=== PATIENT | male | born 1950 | race Caucasian/White ===

== ENCOUNTER 2016-09-16 13:01 | Inpatient (IN) | payer MEDICARE ==
[~2016-09-16] VITALS: Ht 180.3 cm; Wt 121.6 kg
[2016-09-16 13:45] VITALS: BP 135/83; PULSE 113; RESP 18; TEMP 98; O2SAT 97
[2016-09-16] MEDS ORDERED: DIPHTH/TETANUS/ACEL PERTUSSIS (BOOSTER) 0.5 ML VIAL/PFS IM ONE (14:00)
[2016-09-16] MEDS ORDERED: SODIUM CHLORIDE 0.9% FLUSH 10 ML FLUSH IVF PRN (14:00)
[2016-09-16 14:01] VITALS: RESP 18; O2SAT 97
--- NOTE | 2016-09-16 14:03 | PD ---
HPI Chief Complaint: Injury Time Seen by Provider: 14:03 Travel History International Travel<30 days: No Contact w/Intl Traveler<30days: No Traveled to known affect area: No History of Present Illness HPI 66-year-old male with history of Parkinson's, a flutter, onset xarelto, presents to the emergency department today for evaluation following a trip and fall. Patient was fishing when he became tangled in his fishing gear. He fell. He did not stop his fall and hit his face directly on the ground. He believes that his eyeglasses broke and went to his left eye. Reports severe left eye pain. Reports being unable to see out of the left eye. Denies chest or tightness. No difficulty breathing. No focal deficits weakness. No other symptoms to report. PFSH Past Medical History Hx Anticoagulant Therapy: Yes Cardiovascular Problems: Yes (ATRIAL FLUTTER) Hypertension: Yes Parkinson's Disease: Yes Tetanus Vaccination: Unknown Past Surgical History Surgical History: No Previous Surgery Social History Alcohol Use: Yes (2-3 TIMES PER WEEK) Tobacco Use: No Substance Use: No Allergies-Medications (Allergen,Severity, Reaction): Coded Allergies: No Known Allergies (Unverified , 09/16/16) Reported Meds & Prescriptions Reported Meds & Active Scripts Active Reported Xarelto (Rivaroxaban) 20 Mg Tab 20 Mg PO DAILY Metformin (Metformin HCl) 500 Mg Tab 500 Mg PO BID With meals Melatonin 5 Mg Tab 5-10 Mg PO HS Take 1-2 tablets with Carbidopa/Levadopa ER at bedtime Flomax (Tamsulosin HCl) 0.4 Mg Cap 0.4 Mg PO HS Myrbetriq (Mirabegron) 50 Mg Tab 50 Mg PO DAILY Lasix (Furosemide) 20 Mg Tab 20 Mg PO DAILY Potassium Chloride ER (Potassium Chloride) 10 Meq Tab 10 Meq PO DAILY Pramipexole (Pramipexole Dihydrochloride) 0.25 Mg Tab 0.25 Mg PO TID Cymbalta DR (Duloxetine HCl) 60 Mg Capdr 60 Mg PO DAILY IN THE PM Sinemet Cr (Carbidopa-Levodopa ER) 50-200 Mg Tab 1 Tab PO HS Sinemet (Carbidopa/Levodopa) 25-250 Mg Tab 1 Tab PO TID Review of Systems Except as stated in HPI: all other systems reviewed are Neg Physical Exam Narrative GENERAL: Well-nourished male patient, in mild distress secondary to pain SKIN: Focused skin assessment warm/dry. Skin tear over the left posterior forearm. HEAD: Normocephalic. 4 centimeters laceration above the left eyebrow. EYES: Pupils equal and round. The left pupil does not react. Patient has minimal lateral movement of the left eye but this is listed significant pain. Patient states he is unable to see out of the left eyebrow can see flashes of light. Complete subconjunctival hematoma of the left eye. No hyphema ENT: No nasal bleeding or discharge. Mucous membranes pink and moist. NECK: Trachea midline. No JVD. CARDIOVASCULAR: Regular rate and rhythm. No murmur appreciated. RESPIRATORY: No accessory muscle use. Clear to auscultation. Breath sounds equal bilaterally. GASTROINTESTINAL: Abdomen soft, non-tender, nondistended. Hepatic and splenic margins not palpable. MUSCULOSKELETAL: No obvious deformities. No clubbing. No cyanosis. No edema. NEUROLOGICAL: Awake and alert. No obvious cranial nerve deficits. Motor grossly within normal limits. Normal speech. PSYCHIATRIC: Appropriate mood and affect; insight and judgment normal. Data Data Last Documented VS Vital Signs Date Time Temp Pulse Resp B/P Pulse Ox O2 Delivery O2 Flow Rate FiO2 09/16/16 16:32 108 18 168/98 96 Room Air 09/16/16 13:45 98.0 Orders Basic Metabolic Panel (Bmp) (09/16/16 13:55) Complete Blood Count With Diff (09/16/16 13:55) Prothrombin Time / Inr (Pt) (09/16/16 13:55) Act Partial Throm Time (Ptt) (09/16/16 13:55) Urinalysis - C+S If Indicated (09/16/16 13:55) Chest, Single Ap (09/16/16 13:55) Ct Brain W/O Iv Contrast(Rout) (09/16/16 13:55) Electrocardiogram (09/16/16 13:55) Iv Access Insert/Monitor (09/16/16 13:55) Ecg Monitoring (09/16/16 13:55) Oximetry (09/16/16 13:55) Oxygen Administration (09/16/16 13:55) Mxpo-Znt-Tglciw (Booster) Inj (Boostrix (09/16/16 14:00) Sodium Chloride 0.9% Flush (Ns Flush) (09/16/16 14:00) Ct Facial Bones W Iv Contrast (09/16/16 ) Morphine Inj (Morphine Inj) (09/16/16 14:15) Ondansetron Inj (Zofran Inj) (09/16/16 14:15) Lidocai-Epi 1%-1:100,000 Inj (Xylocaine- (09/16/16 14:30) Iohexol 350 Inj (Omnipaque 350 Inj) (09/16/16 16:04) Prothrombin Complex Conc Inj (Kcentra In (09/16/16 17:30) Type And Screen (09/16/16 17:28) Admit Order (Ed Use Only) (09/16/16 17:43) Consult Ophthalmology (09/16/16 ) Labs Laboratory Tests Test 09/16/16 09/16/16 14:25 14:50 White Blood Count 9.1 TH/MM3 Red Blood Count 4.95 MIL/MM3 Hemoglobin 15.4 GM/DL Hematocrit 46.8 % Mean Corpuscular Volume 94.6 FL Mean Corpuscular Hemoglobin 31.1 PG Mean Corpuscular Hemoglobin 32.9 % Concent Red Cell Distribution Width 14.0 % Platelet Count 195 TH/MM3 Mean Platelet Volume 8.6 FL Neutrophils (%) (Auto) 69.9 % Lymphocytes (%) (Auto) 19.2 % Monocytes (%) (Auto) 8.0 % Eosinophils (%) (Auto) 2.3 % Basophils (%) (Auto) 0.6 % Neutrophils # (Auto) 6.4 TH/MM3 Lymphocytes # (Auto) 1.8 TH/MM3 Monocytes # (Auto) 0.7 TH/MM3 Eosinophils # (Auto) 0.2 TH/MM3 Basophils # (Auto) 0.1 TH/MM3 CBC Comment DIFF FINAL Differential Comment Prothrombin Time 11.3 SEC Prothromb Time International 1.0 RATIO Ratio Activated Partial 28.8 SEC Thromboplast Time Sodium Level 140 MEQ/L Potassium Level 4.5 MEQ/L Chloride Level 108 MEQ/L Carbon Dioxide Level 23.8 MEQ/L Anion Gap 8 MEQ/L Blood Urea Nitrogen 26 MG/DL Creatinine 0.86 MG/DL Estimat Glomerular Filtration 89 ML/MIN Rate Random Glucose 166 MG/DL Calcium Level 8.7 MG/DL Urine Color YELLOW Urine Turbidity CLEAR Urine pH 5.0 Urine Specific [place] 1.011 Urine Protein NEG mg/dL Urine Glucose (UA) NEG mg/dL Urine Ketones NEG mg/dL Urine Occult Blood NEG Urine Nitrite NEG Urine Bilirubin NEG Urine Urobilinogen LESS THAN 2.0 MG/DL Urine Leukocyte Esterase NEG Urine WBC LESS THAN 1 /hpf Urine Mucus FEW /lpf Microscopic Urinalysis Comment CULT NOT INDICATED MDM Medical Decision Making Medical Screen Exam Complete: Yes Emergency Medical Condition: Yes Medical Record Reviewed: Yes Differential Diagnosis Globe rupture versus facial fracture versus intracranial hemorrhage versus contusion Narrative Course 66-year-old male presents to the emergency department for evaluation following a trip and fall. He has visible left eye trauma with a laceration to left forehead. He has no focal deficits or weakness. 1649 CT is complete but not yet read.. I spoke with Dr. Barry regarding the imaging study. He states that the glob is full of blood with hemorrhage and hematoma surrounding it. I discussed this with my attending physician Dr. Perez who recommends moving for with KCENTRA to reverse patient's Xarelto. A call has been placed to Dr. Kerns. Patient's laceration is approximated. My attending spoke with Dr. Paredes, grinding wheel facer. Patient will be admitted to the ICU due to reversal of his anticoagulation therapy. Last Impressions Head CT 09/16/16 1355 Signed Impressions: Service Date/Time: Friday, September 16, 2016 15:56 - CONCLUSION: 1. No acute intracranial process, trauma or hemorrhage 2. However, is a large left frontal cephalhematoma with no injury to the left globe including intraocular hemorrhage and possible disruption of the lens. 3. Mild chronic sinus disease. Jb Cohen MD Chest X-Ray 09/16/16 1425 Signed Impressions: Service Date/Time: Friday, September 16, 2016 14:20 - CONCLUSION: 1. No acute cardiopulmonary findings. Nick Barry MD Maxillofacial CT 09/16/16 0000 Signed Impressions: Service Date/Time: Friday, September 16, 2016 15:56 - CONCLUSION: 1. No fracture. 2. Disruption of the left globe with internal hemorrhage and possible injury to the lens. 3. Large cephalhematoma over the left frontal bone with probable associated laceration. 4. Mild chronic sinus disease. Jb Cohen MD Patient is reporting left hand pain. X-ray imaging is ordered. Procedures Procedure Narrative LACERATION LOCATION: Left forehead LENGTH: 4.5 cm NUMBER OF STITCHES/ANDREY: 14 suture REPAIR: The area of the laceration was prepped with Betadine and sterilely draped. The laceration was infiltrated with 1% lidocaine with epinephrine. The wound was copiously irrigated and explored without evidence of foreign body , tendon injury or neurovascular injury. The wound was closed using 5-0 Prolene. This was a single layer repair. A sterile dressing was applied. The patient was advised to keep the dressing clean and dry. Patient tolerated the procedure well. Diagnosis Primary Impression: Traumatic injury of globe of left eye Additional Impressions: Forehead laceration Qualified Code: S01.81XA - Forehead laceration, initial encounter Injury of left hand Qualified Code: S69.92XA - Injury of left hand, initial encounter On anticoagulant therapy Admitting Information Admitting Physician Requests: Admit Condition: Stable Leida Brody Sep 16, 2016 14:03
[2016-09-16] MEDS ORDERED: SINE50TA PO (14:15)
[2016-09-16] MEDS ORDERED: [UNRECOGNIZED DRUG - CODE] PO (14:15)
[2016-09-16] MEDS ORDERED: PRAM0.25 PO (14:15)
[2016-09-16] MEDS ORDERED: ONDANSETRON HCL 4 MG/2 ML VIAL IVP ONE (14:15)
[2016-09-16] MEDS ORDERED: POTA10TA2 PO (14:15)
[2016-09-16] MEDS ORDERED: TAMS5CAP PO (14:15)
[2016-09-16] MEDS ORDERED: METF500T PO (14:15)
[2016-09-16] MEDS ORDERED: FURO1TAB62 PO (14:15)
[2016-09-16] MEDS ORDERED: MIRA50TA PO (14:15)
[2016-09-16] MEDS ORDERED: MORPHINE SULFATE 8 MG/ML INJ IV PUSH ONE (14:15)
[2016-09-16] MEDS ORDERED: MELA5TAB15 PO (14:15)
[2016-09-16] MEDS ORDERED: CYMB60CA PO (14:15)
[2016-09-16] MEDS ORDERED: XARE20TA PO (14:15)
[2016-09-16] MEDS ORDERED: LIDOCAINE 1%/EPINEPHrine 1:100,000 SOLN 20 ML VIAL INFIL ONE (14:30)
[2016-09-16 14:45] LABS: AUTOMATED NEUTROPHIL # 6.4 TH/MM3 (1.8-7.7); BASOPHIL # 0.1 TH/MM3 (0-0.2); BASOPHIL % 0.6 % (0.0-2.0); EOSINOPHIL # 0.2 TH/MM3 (0-0.4); EOSINOPHIL % 2.3 % (0.0-4.0); HEMATOCRIT 46.8 % (39.0-51.0); HEMO FLAGS DIFF FINAL; LYMPH % 19.2 % (9.0-44.0); LYMPHOCYTE # 1.8 TH/MM3 (1.0-4.8); MEAN CELL VOLUME 94.6 FL (80.0-100.0); MEAN CORPUSCULAR HEMOGLOBIN 31.1 PG (27.0-34.0); MEAN CORPUSCULAR HGB CONC 32.9 % (32.0-36.0); NEUT % 69.9 % (16.0-70.0); PLATELET COUNT 195 TH/MM3 (150-450); RED BLOOD COUNT 4.95 MIL/MM3 (4.50-5.90); WHITE BLOOD COUNT 9.1 TH/MM3 (4.0-11.0)
--- NOTE | 2016-09-16 14:51 | RADRPT ---
EXAM DATE/TIME: 09/16/2016 14:20 [facility] COMPARISON: No previous studies available for comparison. INDICATIONS : Fell on the [employer] fishing. MEDICAL HISTORY : None. SURGICAL HISTORY : None. ENCOUNTER: Initial ACUITY: 1 day PAIN SCORE: 0/10 LOCATION: Bilateral chest FINDINGS: A single view of the chest demonstrates the lungs to be symmetrically aerated without evidence of mas s, infiltrate or effusion. The cardiomediastinal contours are unremarkable. Osseous structures are intact. CONCLUSION: 1. No acute cardiopulmonary findings. Nick Barry MD on September 16, 2016 at 14:49 Board Certified Radiologist. This report was verified electronically.
[2016-09-16 14:57] LABS: APTT (PATIENT) 28.8 SEC (24.3-30.1); PROTHROMBIN TIME - PATIENT 11.3 SEC (9.8-11.6)
[2016-09-16 15:02] LABS: BICARBONATE 23.8 MEQ/L (21.0-32.0)
[2016-09-16 15:04] LABS: POTASSIUM 4.5 MEQ/L (3.5-5.1)
[2016-09-16 15:06] LABS: BLOOD, URINE NEG (NEG); COMMENT (UR) CULT NOT INDICATED; CULTURE IF INDICATED CULT NOT INDICATED; GLUCOSE,URINE NEG (NEG); KETONE, URINE NEG (NEG); MUCUS URINE FEW /lpf (OCC); NITRITE,URINE NEG (NEG); URINE COLOR YELLOW (YELLW/STRAW)
[2016-09-16] MEDS ORDERED: IOHEXOL 350 MG/ML 10 ML VIAL (for RAD DIAG) IV ONE (16:04)
[2016-09-16 16:32] VITALS: BP 168/98; PULSE 108; RESP 18; O2SAT 96
--- NOTE | 2016-09-16 16:54 | RADRPT ---
EXAM DATE/TIME: 09/16/2016 15:56 [place] Corrected on: September 17, 2016; [facility] COMPARISON: No previous studies available for comparison. INDICATIONS : Fall and hit head; glass cut left eyelid. RADIATION DOSE: 51.06 CTDIvol (mGy) MEDICAL HISTORY : Cardiovascular disease. Parkinson's. Hypertension. SURGICAL HISTORY : None. ENCOUNTER: Initial ACUITY: 1 day PAIN SCALE: 3/10 LOCATION: Cranial TECHNIQUE: Multiple contiguous axial images were obtained of the head. Using automated exposure control and adj ustment of the mA and/or kV according to patient size, radiation dose was kept as low as reasonably a chievable to obtain optimal diagnostic quality images. FINDINGS: CEREBRUM: The ventricles are normal for age. No evidence of midline shift, mass lesion, hemorrhage or acute in farction. No extra-axial fluid collections are seen. POSTERIOR FOSSA: The cerebellum and brainstem are intact. The 4th ventricle is midline. The cerebellopontine angle i s unremarkable. EXTRACRANIAL: There appears to be intraocular hemorrhage of the left globe with possible disruption of the lens is well. Mild chronic sinus disease. SKULL: The calvaria is intact. No evidence of skull fracture. Large cephalhematoma over the left frontal silverio ne with edema extending into the preseptal space. CONCLUSION: 1. No acute intracranial process, trauma or hemorrhage 2. However, is a large left frontal cephalhematoma with injury to the left globe including intraocula r hemorrhage and possible disruption of the lens. 3. Mild chronic sinus disease. Jb Cohen MD on September 16, 2016 at 16:48 Board Certified Radiologist. This report was verified electronically. Mayelin Reeder MD on September 17, 2016 at 18:30 Board Certified Radiologist. This report was verified electronically.
[2016-09-16] MEDS ORDERED: PROTHROMBIN COMPLEX CONC INJ 2,500 UNITS in SYRINGE/BAG 1 EA IV ONE (17:30)
--- NOTE | 2016-09-16 17:33 | RADRPT ---
EXAM DATE/TIME: 09/16/2016 15:56 [facility] COMPARISON: No previous studies available for comparison. INDICATIONS : Fall and hit head; glass cut left eyelid. IV CONTRAST: 58 cc Omnipaque 350 (iohexol) IV RADIATION DOSE: 61.76 CTDIvol (mGy) MEDICAL HISTORY : Hypertension. Parkinsons. Cardiovascular disease SURGICAL HISTORY : None. ENCOUNTER: Initial ACUITY: 1 day PAIN SCALE: 5/10 LOCATION: facial TECHNIQUE: Volumetric scanning of the facial bones was performed. Using automated exposure control and adjustme nt of the mA and/or kV according to patient size, radiation dose was kept as low as reasonably achiev able to obtain optimal diagnostic quality images. FINDINGS: ORBITS: Osseous structures are intact. There is trauma to the left globe with internal hemorrhage and possibl e disruption of the lens. NASAL BONE: The nasal bone and maxillary spine are intact ZYGOMATIC ARCHES: Symmetric without evidence of fracture. SINUSES: Mild mucoperiosteal thickening within the ethmoid air cells bilaterally. NASAL CAVITY: The nasal septum is intact and midline. The lacrimal ducts are intact. SOFT TISSUES: Cephalhematoma over the left frontal bone with probable associated laceration. INTRACRANIAL: No intracranial air seen. CRIBIFORM PLATE: Grossly intact. CONCLUSION: 1. No fracture. 2. Disruption of the left globe with internal hemorrhage and possible injury to the lens. 3. Large cephalhematoma over the left frontal bone with probable associated laceration. 4. Mild chronic sinus disease. Jb Cohen MD on September 16, 2016 at 17:26 Board Certified Radiologist. This report was verified electronically.
--- NOTE | 2016-09-16 17:53 | PD ---
Physical Exam Date Seen by Provider: Sep 16, 2016 Time Seen by Provider: 14:30 Narrative I patient with Leida armas DNP this is a 66 year old gentleman who has history of atrial flutter, who is on Xarelto, diabetes, Parkinson's disease, who presents with traumatic injury to his left eye. Patient was fishing and tripped and fell forward his eye will stop his fall. He's states he fell onto his face and was unable to stop the fall. He has a large amount of blood in his left eye and has mild proptosis. He he also has significant subconjunctival hemorrhage. The patient is unable to see out of left eye. Patient also has a scalp laceration. Data Data Last Documented VS Vital Signs Date Time Temp Pulse Resp B/P Pulse Ox O2 Delivery O2 Flow Rate FiO2 09/16/16 16:32 108 18 168/98 96 Room Air 09/16/16 13:45 98.0 Orders Basic Metabolic Panel (Bmp) (09/16/16 13:55) Complete Blood Count With Diff (09/16/16 13:55) Prothrombin Time / Inr (Pt) (09/16/16 13:55) Act Partial Throm Time (Ptt) (09/16/16 13:55) Urinalysis - C+S If Indicated (09/16/16 13:55) Chest, Single Ap (09/16/16 13:55) Ct Brain W/O Iv Contrast(Rout) (09/16/16 13:55) Electrocardiogram (09/16/16 13:55) Iv Access Insert/Monitor (09/16/16 13:55) Ecg Monitoring (09/16/16 13:55) Oximetry (09/16/16 13:55) Oxygen Administration (09/16/16 13:55) Mznu-Ynr-Qvwolu (Booster) Inj (Boostrix (09/16/16 14:00) Sodium Chloride 0.9% Flush (Ns Flush) (09/16/16 14:00) Ct Facial Bones W Iv Contrast (09/16/16 ) Morphine Inj (Morphine Inj) (09/16/16 14:15) Ondansetron Inj (Zofran Inj) (09/16/16 14:15) Lidocai-Epi 1%-1:100,000 Inj (Xylocaine- (09/16/16 14:30) Iohexol 350 Inj (Omnipaque 350 Inj) (09/16/16 16:04) Prothrombin Complex Conc Inj (Kcentra In (09/16/16 17:30) Type And Screen (09/16/16 17:28) Admit Order (Ed Use Only) (09/16/16 17:43) Consult Ophthalmology (09/16/16 ) Labs Laboratory Tests Test 09/16/16 09/16/16 14:25 14:50 White Blood Count 9.1 TH/MM3 Red Blood Count 4.95 MIL/MM3 Hemoglobin 15.4 GM/DL Hematocrit 46.8 % Mean Corpuscular Volume 94.6 FL Mean Corpuscular Hemoglobin 31.1 PG Mean Corpuscular Hemoglobin 32.9 % Concent Red Cell Distribution Width 14.0 % Platelet Count 195 TH/MM3 Mean Platelet Volume 8.6 FL Neutrophils (%) (Auto) 69.9 % Lymphocytes (%) (Auto) 19.2 % Monocytes (%) (Auto) 8.0 % Eosinophils (%) (Auto) 2.3 % Basophils (%) (Auto) 0.6 % Neutrophils # (Auto) 6.4 TH/MM3 Lymphocytes # (Auto) 1.8 TH/MM3 Monocytes # (Auto) 0.7 TH/MM3 Eosinophils # (Auto) 0.2 TH/MM3 Basophils # (Auto) 0.1 TH/MM3 CBC Comment DIFF FINAL Differential Comment Prothrombin Time 11.3 SEC Prothromb Time International 1.0 RATIO Ratio Activated Partial 28.8 SEC Thromboplast Time Sodium Level 140 MEQ/L Potassium Level 4.5 MEQ/L Chloride Level 108 MEQ/L Carbon Dioxide Level 23.8 MEQ/L Anion Gap 8 MEQ/L Blood Urea Nitrogen 26 MG/DL Creatinine 0.86 MG/DL Estimat Glomerular Filtration 89 ML/MIN Rate Random Glucose 166 MG/DL Calcium Level 8.7 MG/DL Urine Color YELLOW Urine Turbidity CLEAR Urine pH 5.0 Urine Specific [place] 1.011 Urine Protein NEG mg/dL Urine Glucose (UA) NEG mg/dL Urine Ketones NEG mg/dL Urine Occult Blood NEG Urine Nitrite NEG Urine Bilirubin NEG Urine Urobilinogen LESS THAN 2.0 MG/DL Urine Leukocyte Esterase NEG Urine WBC LESS THAN 1 /hpf Urine Mucus FEW /lpf Microscopic Urinalysis Comment CULT NOT INDICATED [facility] Medical Record Reviewed: Yes Supervised Visit with DEEDEE: Yes Differential Diagnosis Ruptured left globe versus traumatic retinal hemorrhage versus retro-bulbar hematoma Narrative Course 56-year-old gentleman who is on Xarelto for atrial flutter, and presents today with traumatic left eye injury and scalp laceration. The patient has significant hemorrhage to his conjunctiva. The patient has obvious hyphema. CT scan shows mild retrobulbar edema with mild proptosis. Dr. Gómez Kerns, on- call panel monitor, his been gracious enough to come in and see the patient. The patient is on Xarelto and we have ordered Kcentra to help reverse his anticoagulation. Diagnosis Primary Impression: Traumatic injury of globe of left eye Additional Impressions: Laceration of head On anticoagulant therapy Condition: Stable Pawan Perez MD Sep 16, 2016 17:53
--- NOTE | 2016-09-16 18:27 | RADRPT ---
EXAM DATE/TIME: 09/16/2016 18:03 [facility] COMPARISON: No previous studies available for comparison. INDICATIONS : Left hand laceration and swelling. MEDICAL HISTORY : None. SURGICAL HISTORY : None. ENCOUNTER: Initial ACUITY: 1 day PAIN SCORE: 1/10 LOCATION: Left 5th digit hand. FINDINGS: There is a moderately angulated and slightly displaced fracture of the proximal aspect of the fifth f jolene proximal phalanx with moderate apex palmar angulation at the transverse fracture site involving the proximal metaphyseal region. The epiphyseal fragment appears to be articulated with the metacarp al head which appears grossly intact. Elsewhere, the bony elements are intact with mild arthritic alicia nges present. CONCLUSION: Moderately angulated mildly displaced fracture of the proximal aspect of the left fifth finger proxim al phalanx. Remigio Smiley MD on September 16, 2016 at 18:22 Board Certified Radiologist. This report was verified electronically.
[2016-09-16 19:15] VITALS: BP 155/89; PULSE 109; RESP 16; O2SAT 96
--- NOTE | 2016-09-16 19:39 | HHI.HP ---
HPI Service Critical Care Medicine Primary Care Physician No Primary Care Physician Admission Diagnosis Traumatic L globe rupture; anticoagulated; KCENTRA given in ED Diagnosis: Travel History International Travel<30 Days: No Contact w/Intl Traveler <30 Da: No Traveled to Known Affected Are: No History of Present Illness 66 year-old man who is taking Xarelto for atrial flutter, tripped and fell this afternoon striking the left side of his face. He sustained blunt injury to the left eye and orbit as well as a large forehead laceration. The patient complains of pain and decreased vision in the left eye. Review of Systems Constitutional: DENIES: Diaphoretic episodes, Fatigue, Fever, Weight gain, Weight loss, Chills, Dizziness, Change in appetite, Night Sweats Endocrine: DENIES: Heat/cold intolerance, Polydipsia, Polyuria, Polyphagia Eyes: COMPLAINS OF: Blurred vision, Eye inflammation, Eye pain, DENIES: Diplopia, Vision loss, Photosensitivity, Double Vision Ears, nose, mouth, throat: DENIES: Tinnitus, Hearing loss, Vertigo, Nasal discharge, Oral lesions, Throat pain, Hoarseness, Ear Pain, Running Nose, Epistaxis, Sinus Pain, Toothache, Odynophagia Respiratory: DENIES: Apneas, Cough, Snoring, Wheezing, Hemoptysis, Sputum production, Shortness of breath Cardiovascular: DENIES: Chest pain, Palpitations, Syncope, Dyspnea on Exertion , PND, Lower Extremity Edema, Orthopnea, Claudication Gastrointestinal: DENIES: Abdominal pain, Black stools, Bloody stools, Constipation, Diarrhea, Nausea, Vomiting, Difficulty Swallowing, Anorexia Genitourinary: DENIES: Sexual dysfunction, Urinary frequency, Urinary incontinence, Urgency, Hematuria, Dysuria, Nocturia, Penile Discharge, Testicular Pain, Testicular Swelling Musculoskeletal: DENIES: Joint pain, Muscle aches, Stiffness, Joint Swelling, Back pain, Neck pain Integumentary: DENIES: Abnormal pigmentation, Nail changes, Pruritus, Rash Hematologic/lymphatic: DENIES: Bruising, Lymphadenopathy Immunologic/allergic: DENIES: Eczema, Urticaria Neurologic: DENIES: Abnormal gait, Headache, Localized weakness, Paresthesias, Seizures, Speech Problems, Tremor, Poor Balance Psychiatric: DENIES: Anxiety, Confusion, Mood changes, Depression, Hallucinations, Agitation, Suicidal Ideation, Homicidal Ideation, Delusions Past Family Social History Allergies: Coded Allergies: No Known Allergies (Unverified , 09/16/16) Past Medical History Atrial flutter Diabetes mellitus Parkinson's disease Diabetic neuropathy Hypertension Obesity BPH Past Surgical History None Reported Medications Reported Meds & Active Scripts Active Reported Xarelto (Rivaroxaban) 20 Mg Tab 20 Mg PO DAILY Metformin (Metformin HCl) 500 Mg Tab 500 Mg PO BID With meals Melatonin 5 Mg Tab 5-10 Mg PO HS Take 1-2 tablets with Carbidopa/Levadopa ER at bedtime Flomax (Tamsulosin HCl) 0.4 Mg Cap 0.4 Mg PO HS Myrbetriq (Mirabegron) 50 Mg Tab 50 Mg PO DAILY Lasix (Furosemide) 20 Mg Tab 20 Mg PO DAILY Potassium Chloride ER (Potassium Chloride) 10 Meq Tab 10 Meq PO DAILY Pramipexole (Pramipexole Dihydrochloride) 0.25 Mg Tab 0.25 Mg PO TID Cymbalta DR (Duloxetine HCl) 60 Mg Capdr 60 Mg PO DAILY IN THE PM Sinemet Cr (Carbidopa-Levodopa ER) 50-200 Mg Tab 1 Tab PO HS Sinemet (Carbidopa/Levodopa) 25-250 Mg Tab 1 Tab PO TID Active Ordered Medications Current Medications Medications (Trade) Dose Ordered Sig/Yifan Route PRN Reason Start Time Stop Time Status Last Admin Dose Admin Sodium Chloride (NS Flush) 2 ml UNSCH PRN IVF FLUSH AFTER USING IV ACCESS 09/16/16 14:00 Erythromycin 1 applic 1 applic Q2HR LEFT EYE 09/16/16 18:45 09/17/16 00:42 Sodium Chloride (NS 1000 ml Inj) 1,000 ml @ 84 mls/hr [id number] IV 09/16/16 20:00 09/16/16 22:26 Acetaminophen (Tylenol) 650 mg Q6H PRN PO PAIN 1-10 AND/OR FEVER >101F 09/16/16 19:45 Morphine Sulfate (Morphine Inj) 2 mg Q2H PRN IV PAIN SCALE 6 TO 10 09/16/16 19:45 09/16/16 22:26 Docusate Sodium (Colace) 100 mg BID PO 09/16/16 21:00 Temazepam (Restoril) 15 mg HS PRN PO INSOMNIA 09/16/16 19:45 Miscellaneous Information 1 [id number] XX 09/16/16 19:45 09/16/16 19:45 Chlorhexidine Gluconate (Chlorhexidine 2% Cloth) 3 pack Taper DAILY@04 TOP 09/17/16 04:00 09/13/17 03:59 Chlorhexidine Gluconate (Chlorhexidine 2% Cloth) 3 pack UNSCH PRN TOP HYGIENIC CARE 09/16/16 19:45 Carbidopa/Levodopa (Sinemet 25-250 Mg) 1 tab TID PO 09/17/16 09:00 Carbidopa/Levodopa (Sinemet Cr 50-200 Mg) 1 tab HS PO 09/16/16 21:00 09/16/16 22:26 Duloxetine HCl (Cymbalta Dr) 60 mg DAILY PO 09/17/16 09:00 Furosemide (Lasix) 20 mg DAILY PO 09/17/16 09:00 Potassium Chloride (KCl) 10 meq DAILY PO 09/17/16 09:00 Pramipexole Dihydrochloride (Mirapex) 0.25 mg TID PO 09/17/16 09:00 Tamsulosin HCl (Flomax) 0.4 mg HS PO 09/16/16 21:00 09/16/16 22:25 Patient Own Medication PT OWN MED: (Mirabeg... DAILY PO 09/17/16 09:00 Future Hold Family History Noncontributory Social History Negative 3 Physical Exam Vital Signs Vital Signs Date Time Temp Pulse Resp B/P Pulse Ox O2 Delivery O2 Flow Rate FiO2 09/16/16 19:15 109 16 155/89 96 Room Air 09/16/16 16:32 108 18 168/98 96 Room Air 09/16/16 14:01 18 97 Room Air 09/16/16 14:01 97 Room Air 09/16/16 13:48 113 18 97 Room Air 09/16/16 13:45 98.0 113 18 135/83 97 Physical Exam GENERAL: Well-nourished, well-developed patient. SKIN: Warm and dry. HEAD: Normocephalic. Large laceration EYES: The left pupil is larger and centered as well and round. There is restriction of all directions of gaze. On the left there is extensive prolapsing subconjunctival hemorrhage, preventing lid closure. The cornea is clear. The iris is normal and the pupil is round. NECK: Supple, trachea midline. No JVD or lymphadenopathy. CARDIOVASCULAR: Regular rate and rhythm without murmurs, gallops, or rubs. RESPIRATORY: Breath sounds equal bilaterally. No accessory muscle use. GASTROINTESTINAL: Abdomen soft, non-tender, nondistended. MUSCULOSKELETAL: No cyanosis, or edema. BACK: Nontender without obvious deformity. No CVA tenderness. EXTREMITIES: No clubbing cyanosis or edema Laboratory Laboratory Tests Test 09/16/16 09/16/16 09/16/16 14:25 14:50 17:30 White Blood Count 9.1 Red Blood Count 4.95 Hemoglobin 15.4 Hematocrit 46.8 Mean Corpuscular Volume 94.6 Mean Corpuscular Hemoglobin 31.1 Mean Corpuscular Hemoglobin 32.9 Concent Red Cell Distribution Width 14.0 Platelet Count 195 Mean Platelet Volume 8.6 Neutrophils (%) (Auto) 69.9 Lymphocytes (%) (Auto) 19.2 Monocytes (%) (Auto) 8.0 Eosinophils (%) (Auto) 2.3 Basophils (%) (Auto) 0.6 Neutrophils # (Auto) 6.4 Lymphocytes # (Auto) 1.8 Monocytes # (Auto) 0.7 Eosinophils # (Auto) 0.2 Basophils # (Auto) 0.1 CBC Comment DIFF FINAL Differential Comment Prothrombin Time 11.3 Prothromb Time International 1.0 Ratio Activated Partial 28.8 Thromboplast Time Sodium Level 140 Potassium Level 4.5 Chloride Level 108 Carbon Dioxide Level 23.8 Anion Gap 8 Blood Urea Nitrogen 26 Creatinine 0.86 Estimat Glomerular Filtration 89 Rate Random Glucose 166 Calcium Level 8.7 Urine Color YELLOW Urine Turbidity CLEAR Urine pH 5.0 Urine Specific Sumner 1.011 Urine Protein NEG Urine Glucose (UA) NEG Urine Ketones NEG Urine Occult Blood NEG Urine Nitrite NEG Urine Bilirubin NEG Urine Urobilinogen LESS THAN 2.0 Urine Leukocyte Esterase NEG Urine WBC LESS THAN 1 Urine Mucus FEW Microscopic Urinalysis Comment CULT NOT INDICATED Blood Type A NEGATIVE Antibody Screen NEGATIVE Blood Bank Comment Result Diagram: 09/16/16 1425 09/16/16 1425 Imaging Last [address] 09/16/16 1355 Signed Impressions: Service Date/Time: Friday, September 16, 2016 15:56 - CONCLUSION: 1. No acute intracranial process, trauma or hemorrhage 2. However, is a large left frontal cephalhematoma with no injury to the left globe including intraocular hemorrhage and possible disruption of the lens. 3. Mild chronic sinus disease. Jb Cohen MD Chest X-Ray 09/16/16 3091 Signed Impressions: Service Date/Time: Friday, September 16, 2016 14:20 - CONCLUSION: 1. No acute cardiopulmonary findings. Nick Barry MD Assessment and Plan Assessment and Plan Left eye injury - Ophthalmology consult appreciated - Continue erythromycin every 2 hours apply to left eye until able to close Atrial flutter - Rate controlled - No anticoagulation indicated at this time Hypertension - Continue Lasix - Low-sodium diet Parkinson's disease - Home dose of levodopa carbidopa Diabetes mellitus - Hold metformin while in the ICU - Insulin sliding scale DVT GI prophylaxis - Teds SCDs only aggressive mobilization - Heart healthy diet Critical Care: The total critical care time was 35 minutes. Time to perform other separately billable procedures was not included in the critical care time. Percy Okeefe MD Sep 16, 2016 19:39
[2016-09-16] MEDS ORDERED: CHLORHEXIDINE GLUCONATE 2 % 1 PACK (2 CLOTHS) TOP PRN (19:45)
[2016-09-16] MEDS ORDERED: MISCELLANEOUS NURSING INFORMATION XX SCH (19:45)
[2016-09-16] MEDS ORDERED: RESP: ALBUTEROL 2.5 MG/IPRATROPIUM 0.5 MG NEB (PRN) INH (19:45)
[2016-09-16] MEDS ORDERED: ACETAMINOPHEN 325 MG TAB PO PRN (19:45)
[2016-09-16] MEDS ORDERED: TEMAZEPAM 15 MG CAP PO PRN (19:45)
[2016-09-16] MEDS: DOCUSATE SODIUM 100 MG CAP PO SCH (21:00)
[2016-09-16 21:30] VITALS: BP 186/87; PULSE 113; RESP 20; TEMP 97.8; O2SAT 97
--- NOTE | 2016-09-16 21:44 | MB ---
cc: JERE FALLON MD, DEANNA K. M.D. DATE OF CONSULTATION: 09/16/2016 REFERRING PHYSICIAN: Dr. Perez REASON FOR CONSULTATION: Left eye trauma. HISTORY OF PRESENT ILLNESS: The patient is a 66 year-old man taking Xarelto for atrial flutter, who tripped and fell this afternoon striking the left side of his face. He sustained blunt injury to the left eye and orbit as well as a large forehead laceration. The patient complains of pain and decreased vision in the left eye. CT scan was suggestive of globe deformation, possibly representing a ruptured globe. OCULAR EXAMINATION: Limited to the eyes and ocular adnexa. Visual acuity using a hand held near card without correction (patient is myopic) was 20/20 on the right. On the left the vision is "BARE HAND MOTIONS." The right pupil is small and centered. The left pupil is larger and centered as well and round. There does appear to be a Clyde Otis pupil on the left. Ocular motility is full on the right. On the left there is restriction of all directions of gaze. Intraocular pressure by palpation on the left - the globe is soft but certainly not flat. I would estimate the intraocular pressure by digital palpation method to be approximately 6 to 8 mmHg. Penlight examination of the right eye is normal. On the left there is extensive prolapsing subconjunctival hemorrhage, 360 degrees, preventing lid closure. The globe is minimally proptotic, though, suggesting lack of any significant retrobulbar hemorrhage. The cornea is clear. The anterior chamber is deep. Again, the iris is normal and the pupil is round. The lens definitely appears slightly cloudy. No view into the posterior segment is possible at this point. RADIOGRAPHIC I reviewed the patient's CT of the facial bones. On coronal section, the globe shows some apparent deformity, indeed suggestive of posterior rupture, however, on axial images, the globe appears to be of perfectly normal size and contour. There are certainly some retrolenticular opacities suggestive of vitreous hemorrhage and perhaps retinal detachment. (I do not expect suprachoroidal hemorrhage, given the soft globe and deep anterior chamber). IMPRESSION: Blunt ocular trauma with substantial prolapsing subconjunctival hemorrhage preventing closure of the lids and protection of the ocular surface. The globe is soft but certainly not flat. The anterior chamber is deep. The iris is normal in appearance with a centered round pupil. All of these characteristics argue against a posterior globe rupture. Furthermore the contour of the globe well seen on axial CT imaging argues against this as well. Certainly there is some intraocular pathology posterior to the lens that likely represents vitreous hemorrhage with or without retinal detachment. There does appear to be an afferent pupillary defect and I cannot be certain that there is not a traumatic optic neuropathy as well. Given the patient's medication induced coagulopathy, I believe surgical exploration would be ill-advised, as there is likely to be endless progressive bleeding during surgery. Given my low suspicion for ruptured globe, I believe observation is the best course of action at this point. PLAN: The patient is being admitted for reversal of the medical anticoagulation. I made several small slit incisions in the conjunctiva under topical anesthesia with a #11 blade to help drain out some of the subconjunctival hemorrhage. This was effective at flattening out the conjunctival prolapse, but the lid is still not quite yet able to close over the globe. Therefore, I am recommending during the night just frequent antibiotic ointment (erythromycin or Bacitracin every two hours to protect the ocular surface). Hopefully tomorrow we will be able to close the lid over the globe and begin using frequent ice packs to reduce swelling further. Further management of suspected intraocular pathology will have to wait until the orbit is less hemorrhagic and edematous and a more thorough assessment of suspected intraocular findings can be entertained. He will likely be needing to see a retina specialist, either here or at his home in [place]. I will follow up with him tomorrow. MD AILYN Heard/MARGARITA /6:58 PM /9:26 PM FILEMON
[2016-09-16 22:00] VITALS: PULSE 114
[2016-09-16] MEDS: TAMSULOSIN HCL 0.4 MG CAP PO SCH (22:25)
[2016-09-16] MEDS: MORPHINE SULFATE 4 MG/ML INJ IV PRN (22:26)
[2016-09-16] MEDS: LEVODOPA/CARBIDOPA 1 TAB TABCR PO SCH (22:26)
[2016-09-16] MEDS: SODIUM CHLOR 0.9% 1000 ML INJ 1,000 ML IV SCH (22:26)
[2016-09-16] MEDS: ERYTHROMYCIN 0.5% OPTH OINT 3.5 GM TUBO LEFT EYE SCH (22:27)
[2016-09-17] VITALS (12 sets, daily range): BP systolic 100–123; BP diastolic 67–80; PULSE 109–124; RESP 15–22; TEMP 98.2–98.4; O2SAT 94–96
[2016-09-17] MEDS: ERYTHROMYCIN 0.5% OPTH OINT 3.5 GM TUBO LEFT EYE SCH ×13 (00:42→22:49)
[2016-09-17] MEDS: CHLORHEXIDINE GLUCONATE 2 % 1 PACK (2 CLOTHS) TOP SCH ×2 (04:00→19:20)
[2016-09-17 04:32] LABS: AUTOMATED NEUTROPHIL # 6.8 TH/MM3 (1.8-7.7); BASOPHIL # 0.1 TH/MM3 (0-0.2); BASOPHIL % 0.5 % (0.0-2.0); EOSINOPHIL % 0.4 % (0.0-4.0); HEMATOCRIT 41.9 % (39.0-51.0); HEMO FLAGS DIFF FINAL; LYMPH % 22.5 % (9.0-44.0); LYMPHOCYTE # 2.3 TH/MM3 (1.0-4.8); MEAN CELL VOLUME 94.6 FL (80.0-100.0); MEAN CORPUSCULAR HEMOGLOBIN 31.9 PG (27.0-34.0); MEAN CORPUSCULAR HGB CONC 33.7 % (32.0-36.0); MONO % 8.9 % (0.0-8.0); NEUT % 67.7 % (16.0-70.0); PLATELET COUNT 197 TH/MM3 (150-450); RED BLOOD COUNT 4.42 MIL/MM3 (4.50-5.90); RED CELL DISTRIBUTION WIDTH 13.8 % (11.6-17.2)
[2016-09-17 04:44] LABS: PROTHROMBIN TIME - PATIENT 73.8 SEC (9.8-11.6)
[2016-09-17 04:46] LABS: ALT (GPT) 7 U/L (12-78); ANION GAP 9 MEQ/L (5-15); AST (GOT) 9 U/L (15-37); BICARBONATE 26.3 MEQ/L (21.0-32.0); BLOOD UREA NITROGEN 22 MG/DL (7-18); CHLORIDE 106 MEQ/L (98-107); GLOMERULAR FILTRATION RATE 88 ML/MIN (>89); MAGNESIUM 1.9 MG/DL (1.5-2.5); POTASSIUM 3.9 MEQ/L (3.5-5.1); SODIUM (NA) 141 MEQ/L (136-145)
[2016-09-17 04:48] LABS: ALKALINE PHOSPHATASE 62 U/L (45-117); TOTAL BILIRUBIN ADULT 0.8 MG/DL (0.2-1.0)
[2016-09-17 04:51] LABS: INTERNATIONAL NORMALIZED RATIO 6.2 RATIO
[2016-09-17] MEDS: MORPHINE SULFATE 4 MG/ML INJ IV PRN ×6 (05:21→20:00)
--- NOTE | 2016-09-17 07:43 | HHI.CCPN ---
Subjective Remarks/Hospital Course Hospital Course: 66 year-old man who is taking Xarelto for atrial flutter, tripped and fell this afternoon striking the left side of his face. He sustained blunt injury to the left eye and orbit as well as a large forehead laceration. The patient complains of pain and decreased vision in the left eye. Subjective: 09/17: doing well this morning. still cannot completely close eye. states his pain is adequately controlled. plan for conservative management per ophthalmology. Objective Vital Signs Date Time Temp Pulse Resp B/P Pulse Ox O2 Delivery O2 Flow Rate FiO2 09/17/16 06:00 117 09/17/16 04:00 98.3 16 100/67 94 09/16/16 19:15 Room Air Intake and Output 09/16/16 09/16/16 09/17/16 08:00 16:00 00:00 Output Total 300 ml Balance -300 ml Result Diagram: 09/17/16 0416 09/17/16 0416 Imaging Last [address] 09/16/16 3046 Signed Impressions: Service Date/Time: Friday, September 16, 2016 15:56 - CONCLUSION: 1. No acute intracranial process, trauma or hemorrhage 2. However, is a large left frontal cephalhematoma with no injury to the left globe including intraocular hemorrhage and possible disruption of the lens. 3. Mild chronic sinus disease. Jb Cohen MD Chest X-Ray 09/16/16 6903 Signed Impressions: Service Date/Time: Friday, September 16, 2016 14:20 - CONCLUSION: 1. No acute cardiopulmonary findings. Nick Barry MD Objective Remarks GENERAL: Well-nourished, well-developed patient. SKIN: Warm and dry. HEAD: Normocephalic. Large laceration EYES: The left pupil is larger and centered as well and round. There is restriction of all directions of gaze. On the left there is extensive prolapsing subconjunctival hemorrhage, preventing lid closure. The cornea is clear. The iris is normal and the pupil is round. NECK: trachea midline. No JVD. CARDIOVASCULAR: tachycardic rate, regular rhythm. atrial flutter by tele. RESPIRATORY: unlabored. equal chest rise. No accessory muscle use. GASTROINTESTINAL: Abdomen soft, non-tender, nondistended. MUSCULOSKELETAL: No cyanosis, or edema. EXTREMITIES: No clubbing cyanosis or edema A/P Assessment and Plan Assessment: 66yM with blunt force eye trauma on anticoagulation with Xarelto. We must continue to watch him in an ICU setting while he is getting q2h eye drops. However, he continues to improve clinically. Given that he is not bleeding, and has no history of coagulopathy other than his xarelto use, it is unclear to me what the INR of 6 is today. We will resend this lab to confirm it' s accuracy. Left eye injury - Ophthalmology consult appreciated - Continue erythromycin every 2 hours apply to left eye until able to close Atrial flutter - Rate controlled - No anticoagulation indicated at this time Hypertension - Continue Lasix - Low-sodium diet Parkinson's disease - Home dose of levodopa carbidopa Diabetes mellitus - Hold metformin while in the ICU - Insulin sliding scale DVT GI prophylaxis - Teds SCDs only aggressive mobilization - Heart healthy diet Dispo: transfer to hospitalist. remain in ICU for q2h eye drops. Glen Samano MD Sep 17, 2016 07:43
[2016-09-17] MEDS: DOCUSATE SODIUM 100 MG CAP PO SCH ×2 (08:54→20:00)
[2016-09-17] MEDS: POTASSIUM CHLORIDE 10 MEQ CONTROLLED RELEASE TAB PO SCH (08:54)
[2016-09-17] MEDS: DULoxetine HCl DR 60 MG CAP PO SCH (08:54)
[2016-09-17] MEDS: FUROSEMIDE 20 MG TAB PO SCH (08:54)
[2016-09-17] MEDS: PRAMIPEXOLE DIHYDROCHLORIDE 0.25 MG TAB PO SCH ×3 (08:54→18:58)
[2016-09-17] MEDS: SODIUM CHLOR 0.9% 1000 ML INJ 1,000 ML IV SCH ×3 (08:55→20:00)
[2016-09-17] MEDS ORDERED: MIRABEGRON 50 MG PO SCH (09:00)
[2016-09-17] MEDS: CARBIDOPA/LEVODOPA 25 MG/250 MG TAB PO SCH ×3 (09:06→18:57)
[2016-09-17 09:39] LABS: APTT (PATIENT) 26.4 SEC (24.3-30.1); INTERNATIONAL NORMALIZED RATIO 0.9 RATIO; PROTHROMBIN TIME - PATIENT 10.2 SEC (9.8-11.6)
--- NOTE | 2016-09-17 13:13 | EKG ---
Date Performed: 09/16/2016 Time Performed: 14:16:49 PTAGE: 66 years EKG: ATRIAL FLUTTER/TACHYCARDIA WITH RAPID VENTRICULAR RESPONSE INDETERMINATE AXIS RIGHT BUNDLE BRANCH BLOCK ABNORMAL ECG NO PREVIOUS TRACING DOCTOR: Fab Alvarado Interpretating Date/Time 09/17/2016 13:11:53
[2016-09-17] MEDS ORDERED: GADODIAMIDE PF 287 MG/ML 5 ML VIAL (for RAD MRI) IV ONE (17:36)
--- NOTE | 2016-09-17 18:31 | RADRPT ---
EXAM DATE/TIME: 09/17/2016 17:09 CORRECTION Corrected on: November 23, 2016; added missing examform data [place] COMPARISON: None INDICATIONS: Trauma, patient fell on 09/16/16 CONTRAST: 25cc Omniscan (gadodiamide) IV MEDICAL HISTORY: Diabetes mellitus type2, Hypertension, Parkinson's disease SURGICAL HISTORY: None ENCOUNTER: Initial ACUITY: 1 day PAIN SCORE: 4/10 LOCATION: Head FINDINGS: There is hematoma in the left frontal scalp and extending into the pre-septal location. The left orbi annabel globe is basically ruptured with vitreous hemorrhage and the lens appears to be in normal anatomi sherly position. Injury to the ciliary bodies should also be entertained difficult to evaluate based on this technique. There is no evidence for retrobulbar or intraconal hematoma, however the slight contu tomas in the fat planes in the supraorbital portion dorsally. The right globe appears intact. CONCLUSION: Disrupted globe on the left side with vitreous hemorrhage. Mayelin Reeder MD on September 17, 2016 at 18:22 Board Certified Radiologist. This report was verified electronically. on November 23, 2016 at 20:24 Board Certified Radiologist. This report was verified electronically.
[2016-09-17] MEDS: LEVODOPA/CARBIDOPA 1 TAB TABCR PO SCH (20:00)
[2016-09-17] MEDS: TAMSULOSIN HCL 0.4 MG CAP PO SCH (20:00)
[2016-09-18] VITALS (7 sets, daily range): BP systolic 95–133; BP diastolic 64–79; PULSE 117–122; RESP 17–18; TEMP 98.1–98.7; O2SAT 93–96
[2016-09-18] MEDS: ERYTHROMYCIN 0.5% OPTH OINT 3.5 GM TUBO LEFT EYE SCH ×6 (00:32→12:26)
[2016-09-18] MEDS: MORPHINE SULFATE 4 MG/ML INJ IV PRN ×4 (00:39→11:21)
--- NOTE | 2016-09-18 06:27 | MB ---
cc: JERE FALLON M.D. DATE OF CONSULTATION 09/17/2016 DATE OF CONSULTATION Ophthalmology followup. Followup exam on the patient today for blunt ocular/orbital trauma. The patient's pain is decreased and subjectively vision may be just slightly better. The patient has been receiving antibiotic ointment q. 2 hours for production of the ocular surface given that his lid did not close over the globe. PHYSICAL EXAMINATION The physical examination is limited to the eyes and ocular adnexa. The examination of the right eye is normal. On the left there is decreased subconjunctival hemorrhage but still enough to prolapse the conjunctivae and prevent full lid closure. There is definitely a Clyde Otis pupil on the left. Ocular motility is increased and the lid is closing better. The cornea is clear. The anterior chamber is deep with no obvious hyphema. The pupil is still round and centered and the lens is definitely cloudy. IMPRESSION Really no change in the situation compared to last night. Clinical exam and most of the CT images argue against a ruptured globe (the anterior chamber is deep, the iris is normal, the pupil is centered and round. The globe is able to maintain intraocular pressure. Most of the images, the sagittal ones at least on CT show a normal circular globe architecture.) Given the patient's anticoagulation and lack of any certainty of a (very poor prognosis anyway) posterior rupture, I cannot imagine the wisdom in doing an exploratory orbitotomy. I suspect that there will be endless copious bleeding that precludes any view of the posterior structures, much less successful repair of any thing we might encounter. PLAN I have asked the patient to contact his eye doctor in [place] and set up followup with a retina specialist Wednesday. By early next week, his medically-induced anticoagulation should be worn off and surgical attempts to repair intraocular pathology (there clearly is at least vitreous hemorrhage and perhaps retinal detachment on CT scan). I have asked to see if we can get an MRI of the orbits today to just have a somewhat better idea of what that posterior segment intraocular pathology may be. The patient has asked me about prognosis for visual recovery and I am really unable to give any clarity at this point. I would expect that he could be discharged home tomorrow, continuing frequent antibiotic ointment every few hours and ice packs as much as tolerated. I will see him tomorrow morning. MD NARCISA Heard /3:46 PM /6:07 AM [email or web address]
[2016-09-18] MEDS: DOCUSATE SODIUM 100 MG CAP PO SCH (08:22)
[2016-09-18] MEDS: POTASSIUM CHLORIDE 10 MEQ CONTROLLED RELEASE TAB PO SCH (08:22)
[2016-09-18] MEDS: CARBIDOPA/LEVODOPA 25 MG/250 MG TAB PO SCH ×2 (08:22→12:26)
[2016-09-18] MEDS: PRAMIPEXOLE DIHYDROCHLORIDE 0.25 MG TAB PO SCH ×2 (08:22→12:26)
[2016-09-18] MEDS: DULoxetine HCl DR 60 MG CAP PO SCH (08:22)
[2016-09-18] MEDS: FUROSEMIDE 20 MG TAB PO SCH (08:23)
[2016-09-18] MEDS ORDERED: NALOXONE HCL 0.4 MG/ML AMP IV PRN (11:30)
[2016-09-18] MEDS ORDERED: NORC5TAB PO (11:40)
[2016-09-18] MEDS ORDERED: ERYTOIN10 LEFT EYE (11:40)
[2016-09-18] MEDS ORDERED: ACETAMINOPHEN 325 MG TAB PO PRN (12:00)
[2016-09-18] MEDS ORDERED: ACETAMINOPHEN/HYDROcodone 325 MG/10 MG TAB PO PRN (12:00)
[2016-09-18] MEDS ORDERED: ACETAMINOPHEN/HYDROcodone 325 MG/5 MG TAB PO PRN (12:00)
[2016-09-18] MEDS ORDERED: MORPHINE SULFATE 4 MG/ML INJ IV PRN (12:00)
--- NOTE | 2016-09-18 12:45 | HHI.PR ---
Subjective Remarks Patient states that he is still having left eye pain. He states that as soon SCDs discharge from he will go straight to the retina specialist office for evaluation and possible surgical intervention. He understands that there is risk if he does not follow-up of losing his eye. 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 He has no other complaints at this time other than his left eye pain Objective Vitals Vital Signs Date Time Temp Pulse Resp B/P Pulse Ox O2 Delivery O2 Flow Rate FiO2 09/18/16 12:00 98.2 121 18 117/76 95 09/18/16 12:00 121 09/18/16 10:00 122 09/18/16 08:00 120 09/18/16 08:00 98.1 120 17 95/64 93 09/18/16 06:00 118 09/18/16 04:00 98.5 119 18 106/75 96 09/18/16 04:00 118 09/18/16 02:00 118 09/18/16 00:00 98.7 117 18 133/79 96 09/18/16 00:00 118 09/17/16 22:00 118 09/17/16 20:00 118 09/17/16 20:00 98.4 109 18 109/80 96 09/17/16 18:00 118 09/17/16 16:00 98.4 118 18 112/72 96 09/17/16 16:00 118 09/17/16 14:16 18 09/17/16 14:00 122 I/O 09/17/16 09/17/16 09/17/16 09/18/16 09/18/16 09/18/16 07:00 15:00 23:00 07:00 15:00 23:00 Intake Total 904 ml 945 ml 475 ml 375 ml Output Total 350 ml 300 ml 425 ml 350 ml Balance 554 ml 645 ml 50 ml 25 ml Intake Oral 250 ml 240 ml IV Total 654 ml 705 ml 475 ml 375 ml Output Urine Total 350 ml 300 ml 425 ml 350 ml Stool Total 0 ml # Voids 1 Result Diagram: 09/17/16 0416 09/17/16 0416 Objective Remarks GENERAL: This is a well-nourished, well-developed patient, in no apparent distress. HEENT: left eye swollen and coagulable areas around eyelids with mild drainage, unable to visualize the entire cornea due to swelling. CARDIOVASCULAR: Regular rate and rhythm RESPIRATORY: Clear to auscultation. Breath sounds equal bilaterally. No wheezes , rales, or rhonchi. GASTROINTESTINAL: Abdomen soft, non-tender, nondistended. Normal active bowel sounds MUSCULOSKELETAL: Extremities without clubbing, cyanosis, or edema. NEURO: Alert & Oriented x4 to person, place, time, situation. Moves all ext x4 A/P Assessment and Plan 66y/o M with blunt force eye trauma on anticoagulation with Xarelto status post Kcentra for acute bleed. Continue q2h erythromycin eyedrops Left eye injury with - Ophthalmology consult appreciated - Continue erythromycin every 2 hours apply to left eye until able to be evaluated by retina specialist per our ophthalmologists. MRI reveals possible ruptured globe with poor prognosis. Will have retina specialist today per Dr. Woodard recommendation to evaluate for further future surgical attempts are intraocular pathology repair if able. Atrial flutter - Rate controlled - No anticoagulation indicated at this time due to recent acute bleed. Hypertensionoverall control. - Continue Lasix - Low-sodium diet Parkinson's disease, chronic - Home dose of levodopa carbidopa Diabetes mellitus type II, - Hold metformin while in the ICU - Insulin sliding scale with blood sugar checks DVT GI prophylaxis - Teds SCDs only aggressive mobilization, no anticoagulation due to recent bleed /PPI - Discharge Planning Discharge to retinal specialists office Dr. Heri Gilliland, retina specialist for further evaluation today at 3 PM Erika Schwab MD Sep 18, 2016 12:45
--- NOTE | 2016-09-18 12:55 | MB ---
cc: JERE FALLON M.D. DATE OF CONSULTATION 09/18/2016 HISTORY The patient is a 66-year-old man with blunt trauma to the left eye. Clinical examination was suspicious but certainly did not clearly indicate posterior globe rupture. Observation was felt to be the safest course, particularly given his significantly evident, clinically induced anticoagulation. PHYSICAL EXAMINATION The physical examination is unchanged today. There is prolapsing hemorrhagic subconjunctival hemorrhage. The cornea is still clear with a deep clear anterior chamber and a round, centered pupil. There is still significant pain on retropulsion of the globe. The intraocular pressure by digital measures in the single digits but the globe is certainly not flat. RADIOGRAPHIC I have reviewed the patient's MRI that was performed yesterday afternoon. Axial images show a normal globe contour as seen before with disorganization of intraocular contents but no obvious rupture. Coronal reconstruction images, however, shows a globe rupture of the superior aspect of the globe midway back behind the insertion of the superior rectus muscle. IMPRESSION With new, better imaging studies that are indeed suggestive of a posterior globe rupture, this changes management some I suspect; however, the patient is clearly still anticoagulated (his Xarelto was stopped less than 48 hours ago) and I do not feel that I am capable of successfully repairing the suspected ocular pathology. I have offered the patient to get a retinal surgeon locally [place]. I am not sure, though that, even if I find one, he or she would be willing to operate given the patient's anticoagulation. The patient actually stated he would prefer to get medical attention for this problem at his home in [place] and I think that is not unreasonable, given the likely prognosis for successful repair, made only worse if done urgently by the anticoagulation status. A few more days off Xarelto and continued cold compresses would certainly aid in surgical exploration and potential repair. PLAN I think the patient is able to go home today with continued cold compresses and just some antibiotic ointment a few times per day. He is going to contact his eye doctor in [place] today and try to get evaluation for retinal referral for Wednesday. MD AILYN Heard/BRANDON /7:14 AM /12:42 PM
--- NOTE | 2016-09-18 17:09 | MB ---
cc: PRATIMA HERBERT MD DATE OF CONSULTATION 09/17/[address] Glen Paredes REASON FOR CONSULTATION Fracture to the left hand. HISTORY OF PRESENT ILLNESS The patient is a 66-year-old man from [place] who is visiting and sustained an injury after tripping and falling. He injured the left side of his face as well as his left hand and left eye. The patient was admitted for a left globe rupture. During the workup, it was noted that there was a displaced fracture of the proximal phalanx of his left fifth finger. REVIEW OF SYSTEMS Otherwise negative in detail except as related to his eye. ALLERGIES He has no known food or drug allergies. PAST MEDICAL HISTORY 1. Atrial flutter 2. Diabetes mellitus 3. Parkinson's disease, 4. Diabetic neuropathy, 5. Hypertension, 6. Obesity, 7. Benign prostatic hypertrophy PAST SURGICAL HISTORY Denied. MEDICATIONS Listed on the chart. FAMILY HISTORY Noncontributory. SOCIAL HISTORY The patient does not smoke or consume alcohol. PHYSICAL EXAMINATION GENERAL: On examination the patient is lying comfortably in bed. VITAL SIGNS: Temperature is 98.4, pulse is 118, blood pressure is 112/72, respirations 18, pulse oximetry is 96% on room air. HEENT: On examination, the patient has obvious trauma to the left globe. There is laceration of left side of his face which appears to have been repaired or treated. There is some blood on his face. His mouth is clear. NECK: Neck is supple without masses. LUNGS: Clear. Examination of his upper extremities reveals a splint in place. There is good perfusion to the fingertips. IMAGING STUDIES X-rays are reviewed. A displaced fracture of the proximal phalanx at the base is noted. IMPRESSION Displaced fracture proximal phalanx of the left fifth finger. PLAN The patient is advised that this should be treated surgically. My preference would be pins. The patient understands he needs to have it fixed, but he would like to return to [place] to have it fixed. The nurse is in the room during the discussion and the patient was shown his x-rays. Pratima Herbert MD Brianne/ 11:45 AM /4:58 PM
== END 2016-09-18 13:35 | disposition home or self-care (01) | DRG 115 ==
LOC: NEPE 13:01 → NEDA 17:45 → HIMW 21:10
PROVIDERS: ADMIT Family Medicine; ATTEND Family Medicine
PROC: 089 Eye, Drainage (ICD-10-PCS; principal; 2016-09-16)
PROC: 0HQ1XZZ Repair Face Skin, External Approach (ICD-10-PCS; 2016-09-16)
DX: S05.22XA Ocular laceration and rupture with prolapse or loss of intraocular tissue, left eye, initial encounter (principal); I48.92 Unspecified atrial flutter; E11.40 Type 2 diabetes mellitus with diabetic neuropathy, unspecified; G20 Parkinson's disease; I10 Essential (primary) hypertension; S01.81XA Laceration without foreign body of other part of head, initial encounter; H54.7 Unspecified visual loss; S62.617A Displaced fracture of proximal phalanx of left little finger, initial encounter for closed fracture; N40.0 Benign prostatic hyperplasia without lower urinary tract symptoms; E66.9 Obesity, unspecified; W01.10XA Fall on same level from slipping, tripping and stumbling with subsequent striking against unspecified object, initial encounter; Z68.37 Body mass index [BMI] 37.0-37.9, adult; Z79.01 Long term (current) use of anticoagulants; Z79.84 Long term (current) use of oral hypoglycemic drugs
CPT/HCPCS: 12013; 70450; 70487; 70543; 71010; 73130; 80048; 80053; 81001; 83735; 84100; 85025; 85610; 85730; 86850; 86900; 86901; 87641; 90471; 90715; 93005; 96374; 96375; A9579; C9132; J2270; J2405; J7030; Q9967